=== PATIENT | female | born 1985 | race Hispanic/Latino ===

== ENCOUNTER 2019-03-13 19:09 | Emergency (ER) | payer SELFPAY ==
[2019-03-13 19:11] VITALS: BP 112/65; PULSE 83; RESP 17; TEMP 37.3; O2SAT 99; BMI 24.9
[2019-03-13 19:14] VITALS: BP 116/78; PULSE 83; RESP 18; TEMP 37.2; O2SAT 99
[2019-03-13 19:34] VITALS: BP 110/78; PULSE 76; RESP 18; O2SAT 99
--- NOTE | 2019-03-13 19:40 | ED.VIS.GEN ---
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 She was not able to come in because of work according to the . She had a home test that is positive. She denies fever, chills night sweats. She denies nausea, vomiting or diarrhea. She denies vaginal bleeding. She does report blood in her urine. She denies low back or flank pain. Prior similar symptoms: No Recent Illness/Hospitalization: No - Past Medical History (1) No significant past medical history Status: Acute Past Medical History - Allergies and Home Meds Allergies/Adverse Reactions: Allergies No Known Allergies Allergy (Verified 03/13/19 19:10) Primary Care Physician: Care Physician,No Primary [Primary Care Provider] - Prior records reviewed: No Past Medical History: None Surgical History: no surgical history Lives: Spouse/ Significant Other, With Family Smoking Status: Never smoker Alcohol: None Drugs: None Review of Systems General: Denies: Chills, Fever, Malaise, Subjective, Sweats, Weight loss, - Eyes: Denies: Visual changes - bilaterally, Blurred Vision - bilaterally ENT: Denies: Rhinorrhea, Sore throat Cardiovascular: Denies: Chest pain, Palpitations Respiratory: Denies: Dyspnea, Cough, Dyspnea on exertion Gastrointestinal: Denies: Abdominal pain, Nausea, Vomiting, Diarrhea, Constipation, Melena, Hematochezia, -, - Genitourinary: Reports: Dysuria, Hematuria, Frequency Musculoskeletal: Denies: Myalgias, Arthralgias, Neck pain, Back pain, Swelling, Extremity Pain, -, - Skin: Denies: Rash, Wounds Neurological: Denies: Headache, Weakness, Numbness Hematologic: Denies: Easy bruising, Easy bleeding Physical Exam Vital Signs/Narrative: Vital Signs Temp Pulse Resp BP Pulse Ox 03/13/19 19:11 99.1 F 83 17 112/65 99 Inital Vital Signs reviewed: Yes General: Well nourished, Well developed, No Acute Distress Head: Normocephalic, Atraumatic Eyes: Perrl, EOMI ENT: Moist mucous membranes, No rhinorrhea Neck: Supple, Nontender Cardiovascular: Regular rate, Regular rhythm, No murmurs Respiratory: No distress, CTA bilaterally, Chest nontender Abdomen: Soft, Nontender, Nondistended, Normal bowel sounds, No masses Back: Nontender, Normal Inspection, CVA tenderness - Right side Extremities: Nontender, No edema Skin: Normal color, No rash Neurological: Alert, Oriented x3, Cranial nerves II-XII grossly intact, Normal Strength, Normal Sensation Psychological: Normal affect, Normal Mood Diagnostic/Tx/Re-eval Laboratory Results 03/13/19 19:49 Urine Color Yellow Urine Clarity Cloudy Urine pH 8.0 Ur Specific Aubrey 1.015 Urine Protein 15 H Urine Glucose (UA) Normal Urine Ketones Negative Urine Occult Blood 150 H Urine Nitrite Negative Urine Bilirubin Negative Urine Urobilinogen Normal Ur Leukocyte Esterase 100 H - Medical Decision Making Patient presents with urinary symptoms. She had a home positive test. UA and urine culture were obtained. Macro is consistent with urinary tract infection. Micro results are pending. Will treat for infection since she is . 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 Endy Munoz. ED Disposition - Plan for ED Patient: Disposition: Home or Assisted Living Diagnosis: Urinary tract infection during Instructions: Urinary Tract Infections in Women Prescriptions: Cephalexin [Keflex] 500 mg PO 4X/DAY #28 cap Prescription Printed Referrals: Care Physician,No Primary [Primary Care Provider] - Endy Munoz MD [STAFF PHYSICIAN] - 3-5 Days Additional Instructions: If you have shaking chills with temperature greater than 100, vomiting prior to being seen by Dr. Endy Munoz in 3 to 5 days, please return to the emergency department for reevaluation.
[2019-03-13 19:52] LABS: Mucous, Urine 0 SEEN /hpf (<or=2+)
[2019-03-13 20:12] LABS: Color, Urine Yellow (Yellow); Glucose, Dipstick Normal (Normal); Ketone-Dipstick Negative (Negative); Leukocyte Esterase-Dipstick 100 /ul (Negative); Nitrite-Dipstick Negative (Negative); Occult Blood-Urine 150 /ul (Negative); Protein-Dipstick 15 mg/dl (Negative); Specific Gravity, Urine 1.015 (1.002-1.030); Urine Bilirubin Dipstick Negative (Negative); Urine Clarity Cloudy (Clear); Urine Urobilinogen Normal (Normal)
[2019-03-13 20:14] VITALS: BP 114/76; PULSE 92; RESP 18; TEMP 37.2; O2SAT 100
[2019-03-13 20:39] LABS: Amorphous Sediment 1+; Bacteria 2+ /hpf (None Seen); Red Blood Cells-Urine 10-25 SEEN /hpf (0-5); Squamous Epithelial Cells - UA 0-5 SEEN /hpf (5-10); White Blood Cells 10-25 SEEN /hpf (0-5)
[2019-03-13] MEDS: Cephalexin 250 MG Capsule 500 MG PO (20:45)
[2019-03-13 20:46] VITALS: RESP 18
== END 2019-03-13 20:49 | disposition home or self-care (01) ==
PROVIDERS: Emergency Provider Emergency Medicine
DX: O23.40 Unspecified infection of urinary tract in pregnancy, unspecified trimester (principal); R31.9 Hematuria, unspecified; Z3A.00 Weeks of gestation of pregnancy not specified
CPT/HCPCS: 81001; 87077; 87086; 87088; 87186; 99283

== ENCOUNTER → 2019-05-08 18:23 | Outpatient (CLI) | payer SELFPAY ==
[2019-05-08 22:52] LABS: Chlamydia Trachomatis by PCR Negative (Negative); Neisserai gonorrhoeae by PCR Negative (Negative); Probe Check PASS; Sample Adequacy Control PASS; Specimen Processing Control PASS
[2019-05-13 20:22] LABS: HPV Reflexed? NOT INDICATED
== END ==
PROVIDERS: Referring Provider Obstetrics & Gynecology; Visit Provider Obstetrics & Gynecology
DX: Z12.4 Encounter for screening for malignant neoplasm of cervix (principal); Z11.3 Encounter for screening for infections with a predominantly sexual mode of transmission
CPT/HCPCS: 87491; 87591; 88175; G0145

== ENCOUNTER 2019-11-13 16:20 | Inpatient (IN) | payer SELFPAY ==
[2019-11-13] VITALS (14 sets, daily range): BP systolic 96–110; BP diastolic 49–73; PULSE 54–80; RESP 16–20; TEMP 36–36.8; O2SAT 97–99; BMI 28.8
--- NOTE | 2019-11-13 11:00 | OB.TRI.NOTE ---
- Problem List (1) 38 weeks gestation of Status: Acute (2) Multiparity Status: Acute (3) Uterine contractions Status: Acute (4) Limited care Status: Acute (5) Late care Status: Acute History of Present Illness Date of Service: 11/13/19 Was patient seen by the physician?: No Reason For Visit: PRIMARY C SECTION Final ALIN: 11/20/19 Gestational age: 39 Weeks and 0 Days Allergies No Known Allergies Allergy (Verified 03/13/19 19:10) Laboratory Studies: Laboratory Tests 11/13/19 11/13/19 Range/Units 17:05 17:05 WBC 9.8 (4.4-11.0) K/mm3 RBC 4.23 (4.2-5.4) M/mm3 Hgb 12.3 (12.0-15.0) g/dL Hct 36.5 L (37-47) % MCV 86.3 (81-99) fL MCH 29.1 (27.0-32.0) pg MCHC 33.7 (32-36) g/dL RDW Std Deviation 41.0 (35.1-43.9) fl RDW Coeff of Philipp 13.2 (11.6-14.6) % Plt Count 229 (150-450) K/mm3 MPV 10.1 (6.2-12.0) fl Immature Gran % (Auto) 0.700 (0.0-0.9) % Neut % (Auto) 68.4 (47-70) % Lymph % (Auto) 21.0 (19-41) % [place] % (Auto) 9.4 (0-10) % Eos % (Auto) 0.2 (0-5) % Baso % (Auto) 0.3 (0-1) % Absolute Neuts (auto) 6.7 (2.0-7.7) X10^3/uL Absolute Lymphs (auto) 2.06 (0.83-4.51) X10^3/uL Nucleated RBC % 0 (0-5) % Blood Type O NEGATIVE Antibody Screen NEGATIVE Physical Exam Vitals: Vital Signs Temp Pulse BP Pulse Ox 97.0 F L 80 102/62 98 11/13/19 19:13 11/13/19 19:14 11/13/19 19:14 11/13/19 19:14 NST - FHR Rate Baby A FHR Category:: Category I Uterine Activity:: Irregular ctx's Impression/Plan Pt initially presented with contractions for rule out labor Cvx 0.5 cm, and remained unchanged after several hours on recheck Ctx's were irregular on toco NST reactive Discussed likely early labor and return precautions
[2019-11-13] MEDS: Lactated Ringers 1,000 ML 200 ML IV (17:05)
[2019-11-13] MEDS: Lactated Ringers 500 ML 999 ML IV ×2 (17:35→18:44)
[2019-11-13 17:38] LABS: Absolute Lymphocyte Count 2.06 X10^3/uL (0.83-4.51); Absolute Neutrophil Count 6.7 X10^3/uL (2.0-7.7); Basophil# 0.03 X10^3/uL; Basophil% 0.3 % (0-1); Eosinophil# 0.02 X10^3/uL; Eosinophils% 0.2 % (0-5); Hematocrit 36.5 % (37-47); Hemoglobin 12.3 g/dL (12.0-15.0); Lymphocyte # 2.06 X10^3/ul (4.0); Mean Corp Hgb Conc 33.7 g/dL (32-36); Mean Corpuscular Hgb 29.1 pg (27.0-32.0); Mean Corpuscular Volume 86.3 fL (81-99); Mean Platelet Vol. 10.1 fl (6.2-12.0); Monocyte# 0.92 X10^3/uL; Monocyte% 9.4 % (0-10); NRBC Flagged by Analyzer 0 % (0-5); Neutrophil # 6.73 X10^3/uL (2.7-7.7); Neutrophil % 68.4 % (47-70); Platelet Count 229 K/mm3 (150-450); RBC Distribution Width CV 13.2 % (11.6-14.6); Red Blood Count 4.23 M/mm3 (4.2-5.4); White Blood Count 9.8 K/mm3 (4.4-11.0)
[2019-11-13] MEDS: fentaNYL 100 MCG/2 ML Ampul IV (17:43)
[2019-11-13] MEDS: Amnioinfusion- 0.9% NS 1,000 ML IV.SOLN. INTRA-UTER (19:05)
--- NOTE | 2019-11-13 19:07 | PCM.HP.OB ---
- Problem List (1) 38 weeks gestation of Status: Acute (2) Multiparity Status: Acute (3) Uterine contractions Status: Acute (4) Limited care Status: Acute (5) Late care Status: Acute History Date of Admission: 11/13/19 Final ALIN: 11/20/19 Gestational age: 39 Weeks and 0 Days History of this : This is a 33 year-old, G2, P1, at 39 weeks gestational age who presents to [facility] ctx's q 2 min and spotting. Allergies No Known Allergies Allergy (Verified 03/13/19 19:10) Home Medications: Home Medications Vits [Prenatabs FA] 1 tab PO DAILY 11/13/19 Smoking Status: Never smoker Number of Fetus(es): 1 NST - FHR Rate Baby A Baseline: 130 Variability:: Moderate Accelerations:: 15 x 15 Decelerations:: None - None on admission, currently having occasional variable, early, and late decelerations Uterine Activity:: Ctx q 2 min History Past Pregnancies: Past Pregnancies Delivery Date Name GA/ Weeks Outcome Route Wt Infant Sex Labor Length Anesthesia Delivery Location Provider FOB Labs: See [facility] records Expected Infant Delivery Method: Spontaneous Vaginal Review of Systems Gynecological: Reports: - - +Ctx, vb. No LOF. 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 - Routine intrapartum care - GBS negative - Epidural prn - EFW < 4500 g and pelvis adequate. Anticipate vaginal delivery
--- NOTE | 2019-11-13 19:12 | PCM.PN.BLA ---
Progress Note At bedside to check patient. Uncomfortable with ctx's. Cvx 5/90/0, return of bloody and clear fluid on vaginal exam. Category 2 tracing. FHT 130/mod calixto/+accels/+variable, late, and early decelerations. Fluid bolus given. Continuing with position changes. FSE and IUPC placed. Will start amnioinfusion. Patient is progressing in labor, and FHT shows moderate variability as well as accelerations. Continue with resuscitative measures at this time for category 2 tracing. STROKE Vital Signs/Narrative: Vital Signs Temp Pulse BP 11/13/19 18:25 98.2 F 67 106/55 L
[2019-11-13] MEDS: Sodium Citrate/Citric Acid 30 ML UDC PO (20:18)
[2019-11-13] MEDS: Cefazolin 2 GM in 0.9% Normal Saline 100 ML IV (20:44)
[2019-11-13] MEDS: Methylergonovine 0.2 MG/ML Ampul IM (20:49)
[2019-11-13] MEDS: Ketorolac 30 MG/ML Syringe IV (21:20)
--- NOTE | 2019-11-13 21:28 | PCM.PN.BLA ---
Progress Note Late entry. Category 2 tracing initially improved with the resuscitative measures. The tracing then returned to category 2, followed by minimal variability and recurrent late decelerations. Using the family member at bedside as a operations plant attendant as he felt comfortable translating and had been translating well all day- discussed with patient that a section was recommended. The bedside operations plant attendant was not working at this time. Discussed nonreassuring status, and risk of compromise and/or . Patient declined a section and stated she understood the risk of compromise and/or . Then using a bedside operations plant attendant, again discussed with patient that a section was recommended. Again reviewed risks, benefits, and alternatives to a section. Discussed risks, benefits of expectant management. Reviewed that risk of not proceeding with a section included, but was not limited to, compromise and/or . The patient continued to decline a section, and stated understanding of the risks of not proceeding with a section. She stated understanding that the recommendation was for a section, and she stated understanding of why this was the recommendation. She continued to decline a section. Cvx remained at 6 cm on multiple rechecks. She continued to have ctx's q 1-2 min with bloody fluid. Discussed with patient concern for a placental abruption. Remained at bedside with patient. After an extensive discussion using the translating service, the patient was agreeable to a section. Reviewed risks, benefits, and alternatives to a section. The patient consented and desired to proceed with a section. STROKE Vital Signs/Narrative: Vital Signs Temp Pulse BP Pulse Ox 11/13/19 19:14 80 102/62 98 11/13/19 19:13 97.0 F L 97 11/13/19 18:25 98.2 F 67 106/55 L
[2019-11-13] MEDS: Oxytocin 30 units/NS 500 ml 30 UNITS/500 ML IV.SOLN 167 UNITS IV (21:30)
--- NOTE | 2019-11-13 21:44 | PCM.OPRPT ---
Problem List (1) 38 weeks gestation of Status: Acute (2) Multiparity Status: Acute (3) Uterine contractions Status: Acute (4) Limited care Status: Acute (5) Late care Status: Acute Report of Operation Date of Procedure: 11/13/19 Pre-Operative Diagnosis: 38 week gestation, multiparous patient, labor, non-reassuring status Post-Operative Diagnosis: As above Surgery/Procedure Performed:: Emergent PLTCS via pfannenstiel incision Description of Surgical Findings:: Normal appearing uterus, tubes, ovaries. Viable infant in cephalic presentation. Clear fluid present. Posterior placenta that was normal-appearing with a three-vessel cord. Type of Anesthesia:: Spinal Special Medications: Methergine given intra-op Specimen's removed: Placenta Drains: Alexander Estimated Blood Loss (mL): 1500 Fluids Replaced: 1500 Description of Procedure: After discussion of risks, benefits, alternatives patient consented to the section. Patient was taken back to the operating room where spinal anesthesia was found to be adequate. She was prepped and draped in the dorsal position with a leftward tilt. A Pfannenstiel skin incision was made using a scalpel and this was carried down to the underlying layer of fascia. The fascia was incised the midline. The fascial incision was extended laterally using Bradford scissors. The fascia was dissected off of the rectus muscles. The rectus was in the midline. The peritoneum was entered bluntly with good visualization of the bladder. The incision was extended bluntly. A low transverse incision was made on the uterus with a scalpel. Clear fluid was noted. was delivered in vertex presentation without any force or delay. A vigorous was delivered, and cord clamping was delayed. Infant was then handed off to the nursery staff. The placenta was removed with manual extraction. Cord gases were obtained. The placenta was sent to pathology. The uterus was cleared of all clot and debris. The uterus was exteriorized from the abdomen. The uterine incision was closed in a running locked fashion. Several additional [id number] sutures were placed for hemostasis. A hematoma measuring 2 x 1 cm was noted at the left lower portion of the hysterotomy. This hematoma was stable in size. The uterus was placed back into the abdomen. The incision was noted to be hemostatic. The hematoma was still stable in size. The peritoneum was closed in a running fashion. The fascia was closed in running fashion. Subcutaneous space was irrigated and made hemostatic with Bovie cautery. The skin was closed in a subcuticular fashion. Steri-Strips and dressing were placed. Instrument counts were correct. The patient was taken to the recovery room in stable condition. Grafts/Implants Used: None - Complications None - Admit VTE Documentation VTE Present on Admission: No VTE Mechan Device Prophylaxis: SCD's Delivery Classification: FLORENCE Indications for : Distress, Nonreassuring Status Placenta Disposition: [facility] Drain: Alexander to straight drain Cord Entanglement: None Cord Vessel Description: 3 Vessels Delayed cord clamping: Yes Antibiotic Given: Ancef 2 grams IV x1, Zithromax 500 mg/5 mL X1 Pt instructed on risks of surgery: Bleeding, Infection, Injury to surrounding structure(s) including bowel and bladder Complications: None
[2019-11-14] VITALS (11 sets, daily range): BP systolic 89–109; BP diastolic 48–55; PULSE 61–75; RESP 16–20; TEMP 36.2–36.8; O2SAT 97–99
--- NOTE | 2019-11-14 | PLAC_PTH ---
PATIENT: JOHANNA VELAZQUEZ LOC: [facility] U#:[id number] AGE/SX: 33/F ROOM: WP019 RE11/13/[address]: Dr. Suzan Zuniga DO : 1985 BED: 1 DIS: 11/15/2019 SPEC #: [id number] RECD: 11/14/19 02:18 STATUS: WILIAN RESarah #: [id number] RENAN: 11/14/19 00:[address]: Suzan Zuniga DEPT: SURGICAL PATHOLOGY RECD BY: Delroy Phelps ENTERED: 11/14/19 11:08 SP TYPE: PLACENTA OTHR DR: No Primary Care Phys Tissues: Placenta, NOS Procedures: Surgery Specimen Level V HEADER OPERATION: Primary section PRE-OP DIAGNOSIS: Possible abruption TISSUE SUBMITTED: Placenta MICROSCOPIC DIAGNOSIS Walker placenta (549 gm): Umbilical cord - trivascular with no inflammation. Placental membranes - no pathologic change. Placental disc - organizing intraparenchymal hemorrhage and intervillous congestion. AM:zainab 11/18/19 MICROSCOPIC DESCRIPTION Slides are reviewed. GROSS DESCRIPTION SPECIMEN: PLACENTA / CLINICAL INFORMATION: A. Weight: 3.465 kg B. Gestational Age: 39 weeks C. Sex: Female PLACENTAL WEIGHT (POST FIXATION): 549 gm PLACENTAL DIMENSIONS: 18 x 19 x 3 cm PLACENTAL SHAPE: Usual ovoid PLACENTAL WEIGHT FOR GESTATIONAL AGE: Within 10-99th percentile MEMBRANES - Present A. Insertion: Marginal B. Site of rupture from edge: 5 cm from edge of placental disc C. Color of membrane: Trinh-boswell D. Abnormalities: None UMBILICAL CORD - Present A. Color: Trinh-boswell B. Insertion: Central C. Length: 34 cm D. Diameter: 1.4 cm E. Number of vessels: Three F. Abnormalities: None PLACENTAL DISC - Present A. Color of surface: Trinh-boswell B. surface abnormalities: None C. Maternal cotyledons: Intact with minimal tears D. Attached retro placental clot: No clot E. Cut surface: Dark red and spongy F. Lesions: Sections reveal a trinh, indurated lesion measuring 1 cm in greatest dimension. G. Separate clot: Absent SECTIONS SUBMITTED: 1. Membrane roll 2. Cord, maternal end 3. Cord, end 4. Placental disc, and maternal surfaces, lesion 5. Placental disc, and maternal surfaces 6. Placental disc, and maternal surfaces SJ:zainab 11/17/19 TC:5 CPT: 22607
[2019-11-14] MEDS: Lactated Ringers 1,000 ML 100 ML IV (00:30)
[2019-11-14 00:34] LABS: Amphetamine Urine VISTA NEGATIVE (<1000 ng/mL); Barbiturate Urine VISTA NEGATIVE (< 200 ng/mL); Benzodiazepine Urine VISTA NEGATIVE (< 200 ng/mL); Cocaine Urine VISTA NEGATIVE (< 300 ng/mL); Ecstacy Urine VISTA NEGATIVE (< 500 ng/mL); Methadone Urine VISTA NEGATIVE (< 300 ng/mL); PCP Urine VISTA NEGATIVE (< 25 ng/mL); THC Urine VISTA NEGATIVE (< 50 ng/mL); Vista UDS pH Range 6
[2019-11-14] MEDS: Ketorolac 30 MG/ML Syringe IV ×4 (03:47→20:56)
[2019-11-14 06:11] LABS: Hematocrit 28.6 % (37-47); Hemoglobin 9.4 g/dL (12.0-15.0); Mean Corp Hgb Conc 32.9 g/dL (32-36); Mean Corpuscular Hgb 28.8 pg (27.0-32.0); Mean Corpuscular Volume 87.7 fL (81-99); Mean Platelet Vol. 10.3 fl (6.2-12.0); Platelet Count 182 K/mm3 (150-450); RBC Distribution Width CV 13.1 % (11.6-14.6); RBC Distribution Width SD 41.1 fl (35.1-43.9); Red Blood Count 3.26 M/mm3 (4.2-5.4); White Blood Count 13.8 K/mm3 (4.4-11.0)
[2019-11-14] MEDS: Enoxaparin 40 MG/0.4 ML Syringe SC (09:40)
[2019-11-14] MEDS: 0.9% Saline Lock 10 ML Syringe IV ×2 (09:40→20:56)
--- NOTE | 2019-11-14 10:34 | NURSING ---
Dr. Webster in to discuss baby care, discharge plans, and importance of picking a measurement superintendent and making an appointment in 1-2 days after discharge. RN in with Doctor and helped with the IPAD training intern, Spoke with Mago and translation of instructions and opportunity for mother to ask questions reguarding baby. Assessment completed by Dr. Webster on baby.
[2019-11-14 10:53] LABS: Pathology Specimen OB SEE PATHOLOGY REPORT
--- NOTE | 2019-11-14 11:03 | PN.OBGYN_ITS ---
Patient Problems: Active and Suspected Problems 38 weeks gestation of (Acute) Multiparity (Acute) Uterine contractions (Acute) Limited care (Acute) Late care (Acute) Subjective: Denies concerns. Pain controlled. - Physical Exam Vitals/I&O's: Vital Signs Temp Pulse Resp BP Pulse Ox 97.9 F 63 16 89/48 L 97 11/14/19 08:20 11/14/19 08:20 11/14/19 08:20 11/14/19 08:20 11/14/19 08:20 Oxygen Delivery Method Room Air Weight: 155 lb 3.287 oz Body Mass Index (BMI) 28.8 Intake and Output for Last 24 Hours 11/12/19 11/13/19 11/14/19 23:59 23:59 23:59 Intake Total 4918.33 / 4918.33 700 / 700 Output Total 400 / 400 1000 / 1000 Balance 4518.33 / 4518.33 -300 / -300 General: Alert, Oriented x3 Abdomen: Soft, Non Tender, Non-Distended - ff mid & below umb; inc - bandage c/d/i Extremities: No Calf Tenderness Neurological: Cranial nerves II-XII grossly intact Laboratory Results 11/13/19 17:05: WBC 9.8, RBC 4.23, Hgb 12.3, Hct 36.5 L, MCV 86.3, MCH 29.1, MCHC 33.7, RDW Std Deviation 41.0, RDW Coeff of Philipp 13.2, Plt Count 229, MPV 10.1, Immature Gran % (Auto) 0.700, Neut % (Auto) 68.4, Lymph % (Auto) 21.0, Wilkes % (Auto) 9.4, Eos % (Auto) 0.2, Baso % (Auto) 0.3, Absolute Neuts (auto) 6.7, Absolute Lymphs (auto) 2.06, Nucleated RBC % 0 11/13/19 17:05: Blood Type O NEGATIVE, Antibody Screen NEGATIVE 11/13/19 23:30: Urine Opiates Screen NEGATIVE, Urine Methadone Screen NEGATIVE, Ur Barbiturates Screen NEGATIVE, Ur Phencyclidine Scrn NEGATIVE, Ur Amphetamines Screen NEGATIVE, U Methamphetamin-MDMA NEGATIVE, U Benzodiazepines Scrn NEGATIVE, Urine Cocaine Screen NEGATIVE, U Cannabinoids Screen NEGATIVE, Ur Drug Screen Comment 11/13/19 23:44: Screen NEGATIVE, Baby's Blood Type O POSITIVE, Baby's POLI NEGATIVE 11/14/19 05:40: WBC 13.8 H, RBC 3.26 L, Hgb 9.4 L, Hct 28.6 L, MCV 87.7, MCH 28.8, MCHC 32.9, RDW Std Deviation 41.1, RDW Coeff of Philipp 13.1, Plt Count 182, MPV 10.3 Current Medications Acetaminophen (Tylenol) 1,000 mg PO Q8H PRN PRN PRN Reason: Pain Score 1-3/10 Bisacodyl (Dulcolax) 10 mg RECTAL UD PRN PRN Reason: If no BM Diphenhydramine HCl (Benadryl) 25 mg PO Q6H PRN PRN PRN Reason: ITCHING Stop: 11/15/19 04:41 Enoxaparin Sodium (Lovenox) 40 mg SC DAILY [facility] Last Admin: 11/14/19 09:40 Dose: 40 mg Documented by: Ferrous Sulfate (Ferrous Sulfate) 325 mg PO DAILY@1200 MATT Hydrocortisone (Hytone) 1 applic TOPICAL TID PRN PRN; Protocol PRN Reason: Discomfort Lactated Ringer's () 1,000 mls @ 100 mls/hr IV .Q10H [facility] Last Admin: 11/14/19 00:30 Dose: 100 mls/hr Documented by: Naloxone HCl 4 mg/ Dextrose 504 mls @ 0 mls/hr IV .Q0M PRN; Protocol PRN Reason: Respiratory depression Ibuprofen (Motrin) 600 mg PO Q6H PRN PRN PRN Reason: Pain Score 1-3/10 Ketorolac Tromethamine (Toradol (Bkc)) 30 mg IV Q6H MATT Stop: 11/15/19 21:31 Last Admin: 11/14/19 09:39 Dose: 30 mg Documented by: Methylergonovine Maleate (Methergine) 0.2 mg IM X1 PRN PRN Reason: Uterine Atony Last Admin: 11/13/19 20:49 Dose: 0.2 mg Documented by: Nalbuphine HCl (Nubain) 5 mg IV Q3H PRN PRN PRN Reason: ITCHING Stop: 11/15/19 04:41 Naloxone HCl (Narcan) 0.02 mg IV Q1M PRN PRN Reason: RR <10 and pt unresponsive Ondansetron HCl (Zofran) 4 mg IV Q4H PRN PRN PRN Reason: Nausea Oxycodone HCl (Oxyir) 5 - 10 mg PO Q4H PRN PRN PRN Reason: Pain Score 4-10/10 Prochlorperazine Edisylate (Compazine Iv) 10 mg IV Q6H PRN PRN PRN Reason: NAUSEA Senna/Docusate Sodium (Senokot-S, Kandace-Colace) 1 - 2 tablet PO DAILY PRN PRN Reason: Constipation Simethicone (Mylicon) 80 mg PO PCHS PRN PRN Reason: Indigestion/stomach pain Sodium Chloride () 5 - 15 ml IV UD PRN PRN Reason: SALINE FLUSH Last Admin: 11/14/19 09:40 Dose: 10 ml Documented by: Medical Necessity - Tobacco Use Smoking Status: Never smoker Assessment/Plan All Active Problems No significant past medical history (Acute) 38 weeks gestation of (Acute) Multiparity (Acute) Uterine contractions (Acute) Limited care (Acute) Late care (Acute) POD#1 Heme - HDS, start iron for anemia of ID - AF, no signs infection GI/ - no isses Plan for d/c tomorrow Routine care
[2019-11-14] MEDS: Ferrous Sulfate 325 MG Tablet PO (13:13)
--- NOTE | 2019-11-14 13:46 | CASEMGMT ---
Social Work Assessment Labor and Delivery Unit Date of Referral: 11/14/2019 Time of Referral: 03:51 Referred By: Dr Tia Osorio Date of Intervention: 11/14/2019 Time of Intervention: 13:46 Reason for Referral: Mother of baby (MOB) with history of late and limited care. History obtained from: MOB, chart, and nursing staff. Household composition: MOB, Father of baby (FOB), MOB?s 7-year-old and now this , Charissa Schrader. Charissa and MOB?s 7-year-old do not share paternity. MOB voicing no concerns for 7-year-olds FOB being involved. Patient's parent/guardian status: MOB voicing to have been in relationship with FOB, Vincent Schrader for the past year. MOB stating to feel safe with Vincent. MOB has custody of both children. Medical History: history for MOB. Emergent at 38 weeks gestation. MOB with no significant past medical history. Infant born on 11/13/2018 with of 9 and 9 at 1min and 5min. Infant weight of 3465g. Educational Status: MOB denies any concerns for comprehension or understanding. MOB primary language is Syriac and an spanish interpreter was utilized to assist with conversation with MOB as this social workers primary language is Polish. Front Desk Administrator used through [employer] ([id number] is I.D. of spanish interpreter). Financial Status: Denies any concerns. FOB works full-time outside of the home. Infant Supplies: MOB stating to have all needed supplies including crib and car seat. Childcare/Caregiver(s): MOB plans to be primary caregiver for as MOB is a homemaker. Transportation: No concerns. Programs/Agencies Involved: No involved agencies/programs. Children Services/Legal Issues: None Mental Health History: MOB denies any mental health history. Educated MOB on signs and symptoms of depression, MOB voicing understanding to this. Resources provided. MOB with negative on PHQ-2 and denies any emotional concerns. Substance Use History: MOB denies any substance abuse for MOB or FOB. Maternal and Drug Screens: Tox screens negative on admission for MOB. Tox screen negative for infant. Pending Meconium at this time. Family/Social Stressors: MOB denies any concerns or recent stressors. Support Systems: MOB reporting to have support from FOB and FOB's family. Depression and Anxiety/Shaken Baby/Safe Sleeping: MOB educated and provided resources on depression and local resources in Syriac. ASSESSMENT: Met with patient in room. Introduced self as well as social research assistant role. MOB open to speaking with this social research assistant. Front Desk Administrator used as mentioned above. MOB stating to have a connection with infant and to have no concerns at time of discharge. This social research assistant broached topic of late care. MOB stating I went to all the appointment accept one. MOB stating to have not gone to the last appointment due to concerns of the current COVID-19 pandemic. This social research assistant educating patient on the importance of following up with doctors appointment. MOB voicing plan and intent to continue to follow up with doctors. MOB stating to believe that MOB had appropriate level of care. MOB presenting with a positive affect. Infant in room during assessment. MOB holding infant and able to manage needs during assessment. MOB planning to do a combination of breast and formula feeding. MOB stating to be bonding with infant and to be excited that infant is here. MOB voicing no concerns at discharge. MOB noted to have multiple care visits and to have missed the last care visit. Due to care records a drug test was obtained and meconium is pending. Updated nursing staff on social work assessment. PLAN: Infant to discharge to home with MOB. No other services requested or indicated. Ford FERREIRA, TERRIE
--- NOTE | 2019-11-14 16:50 | CASEMGMT ---
Social Work Assessment Labor and Delivery Unit Date of Referral: Time of Referral: Referred By: Date of Intervention: Time of Intervention: Reason for Referral: Mother of baby (MOB) with history of late and limited care. History obtained from: MOB, chart, and nursing staff. Household composition: MOB, Father of baby (FOB), MOB?s 7-year-old and now this infant, Charissa Schrader. Charissa and MOB?s 7-year-old do not share paternity. MOB voicing no concerns for 7-year-olds FOB being involved. Patient's parent/guardian status: MOB voicing to have been in relationship with FOB, Vincent Schrader for the past year. MOB stating to feel safe with Vincent. MOB has custody of both children. Medical History: history for MOB. Emergent at 38 weeks gestation. MOB with no significant past medical history. Infant born on 11/13/2018 with of 9 and 9 at 1min and 5min. Infant weight of 3465g. Educational Status: MOB denies any concerns for comprehension or understanding. MOB primary language is Czech and an special procedures technologist was utilized to assist with conversation with MOB as this social workers primary language is Dutch. Land Clearer used through [employer] ([id number] is I.D. of special procedures technologist). Financial Status: Denies any concerns. FOB works full-time outside of the home. Infant Supplies: MOB stating to have all needed supplies including crib and car seat. Childcare/Caregiver(s): MOB plans to be primary caregiver for infant as MOB is a homemaker. Transportation: No concerns. Programs/Agencies Involved: No involved agencies/programs. Children Services/Legal Issues: None Mental Health History: MOB denies any mental health history. Educated MOB on signs and symptoms of depression, MOB voicing understanding to this. Resources provided. Substance Use History: Family History: Maternal and Infant Drug Screens: PHQ9: (can put this into the behavioral health section above or make a stand-alone section depending on how much data is discussed) Family/Social Stressors: Support Systems: Depression and Anxiety/Shaken Baby/Safe Sleeping: (can be stand alone or in the assessment piece depending on how much time was taken) ASSESSMENT: Safe Plan of Care for related to substance use: PLAN: No other services requested or indicated.
[2019-11-15 02:03] VITALS: BP 88/43; PULSE 67; RESP 16; TEMP 36.8
[2019-11-15] MEDS: Acetaminophen 500 MG Tablet 1000 MG PO (02:11)
--- NOTE | 2019-11-15 04:18 | NURSING ---
Safe sleep education given to pt. and FOB several times throughout the night. Nigerian safe sleep brochure and paper were provided as well as the english version of The [employer] book. Family states understanding, but continues to sleep with infant in the bed. This RN and Brianne Monge RN have moved infant to crib during hourly rounding several times to ensure safe sleep environment.
[2019-11-15] MEDS: Ibuprofen 600 MG Tablet PO (08:50)
[2019-11-15] MEDS: Senna/Docusate Sodium 1 Tablet PO (08:51)
[2019-11-15 09:00] VITALS: BP 104/56; PULSE 77; RESP 16; TEMP 36.8; O2SAT 98
[2019-11-15] MEDS: Enoxaparin 40 MG/0.4 ML Syringe SC (10:14)
--- NOTE | 2019-11-15 10:16 | DCINST_ITS ---
Discharge Diet: No Restrictions Discharge Activity: May not drive while taking narcotic pain medications., May Shower May resume sexual activity in: 6 weeks Weight Bearing Status: Weight bearing as tolerated Call your doctor if your incision/area has: Continuous Slow Oozing, Sudden Increased Bleeding, Increased Pain/ Swelling, Increased Redness, Foul Smelling Discharge, Swelling at the incision site Suture Line Care: Avoid Pulling/Pushing, Avoid Pinching/Bending Cleanse incision/area with: Soap & Water Additional Instructions: If you experience any of the following, contact your healthcare provider. * Bleeding that soaks a pad every hour for 2 hours * Fever 100.4 or higher * Unrelieved incision or abdominal pain * Swelling, redness, discharge or bleeding from your incision or episiotomy site * Your incision begins to separate * Problems urinating (including inability to urinate or burning while urinating). * Visual changes * Severe headache * Flu-like symptoms * Pain or redness in one of both of your breasts * Pain, warmth, tenderness or swelling in your legs, especially the calf area * Frequent nausea and vomiting * Symptoms of depression or anxiety If you experience any of the following, call 911 or go to the nearest Emergency Room. * Chest pain * Problems breathing * Seizure activity * Partial or complete paralysis of a body part, slurred speech, weakness or drooping of the face, or a sudden inability to walk or hold your balance Allergies/Adverse Reactions: Allergies No Known Allergies Allergy (Verified 03/13/19 19:10) Medications to take at Discharge Vits [Prenatabs FA ] 1 tab PO DAILY 11/13/19 Acetaminophen [Tylenol] 1,000 mg PO Q8H PRN PRN tablet 11/15/19 Ferrous Sulfate 325 mg PO DAILY@1200 #30 tab 11/15/19 Ibuprofen [Motrin] 600 mg PO Q6H PRN PRN #30 tab 11/15/19 Oxycodone [Oxyir] 5 mg PO Q6H PRN PRN 5 Days #20 tablet 11/15/19 Senna/Docusate Sodium [Senokot-S] 1 tab PO DAILY PRN #20 tab 11/15/19 The following prescriptions were given: Ferrous Sulfate 325 mg PO DAILY@1200 #30 tab Transmission Status: Pending to [facility] Ibuprofen [Motrin] 600 mg PO Q6H PRN PRN #30 tab PRN Reason: Pain Score 1-3/10 Transmission Status: Pending to [facility] Oxycodone [Oxyir] 5 mg PO Q6H PRN PRN 5 Days #20 tablet PRN Reason: Pain Score 4-10/10 Transmission Status: Sent to [facility] Senna/Docusate Sodium [Senokot-S] 1 tab PO DAILY PRN #20 tab PRN Reason: Constipation Transmission Status: Pending to [facility] Follow-Up: Call to make an appointment with your doctor for an incision check in 1-2 weeks. You will also need a 6 week post- follow up appointment. Test results from this visit will be discussed in further detail at your follow- up appointment, if applicable. Primary Care Physician: Care Physician,No Primary [Primary Care Provider] -
--- NOTE | 2019-11-15 10:19 | PCM.PN.OB ---
Patient Problems: Active and Suspected Problems 38 weeks gestation of (Acute) Multiparity (Acute) Uterine contractions (Acute) Limited care (Acute) Late care (Acute) Subjective: Pain controlled - Physical Exam Vitals/I&O's: Vital Signs Temp Pulse Resp BP Pulse Ox 98.3 F 67 16 88/43 L 97 11/15/19 02:03 11/15/19 02:03 11/15/19 02:03 11/15/19 02:03 11/14/19 21:09 Oxygen Delivery Method Room Air Weight: 155 lb 3.287 oz Body Mass Index (BMI) 28.8 Intake and Output for Last 24 Hours 11/13/19 11/14/19 11/15/19 23:59 23:59 23:59 Intake Total 4918.33 / 4918.33 1616.67 / 1616.67 Output Total 400 / 400 1000 / 1000 Balance 4518.33 / 4518.33 616.67 / 616.67 General: Alert, Oriented x3 Abdomen: Soft, Non Tender, Non-Distended - ff mid & below umb; incision - bandage c/d/i Extremities: No Calf Tenderness Neurological: Cranial nerves II-XII grossly intact Current Medications Acetaminophen (Tylenol) 1,000 mg PO Q8H PRN PRN PRN Reason: Pain Score 1-310 Last Admin: 11/15/19 02:11 Dose: 1,000 mg Documented by: Bisacodyl (Dulcolax) 10 mg RECTAL UD PRN PRN Reason: If no BM Enoxaparin Sodium (Lovenox) 40 mg SC DAILY [facility] Last Admin: 11/15/19 10:14 Dose: 40 mg Documented by: Ferrous Sulfate (Ferrous Sulfate) 325 mg PO DAILY@1200 [facility] Last Admin: 11/14/19 13:13 Dose: 325 mg Documented by: Hydrocortisone (Hytone) 1 applic TOPICAL TID PRN PRN; Protocol PRN Reason: Discomfort Naloxone HCl 4 mg/ Dextrose 504 mls @ 0 mls/hr IV .Q0M PRN; Protocol PRN Reason: Respiratory depression Ibuprofen (Motrin) 600 mg PO Q6H PRN PRN PRN Reason: Pain Score 1-3/10 Last Admin: 11/15/19 08:50 Dose: 600 mg Documented by: Methylergonovine Maleate (Methergine) 0.2 mg IM X1 PRN PRN Reason: Uterine Atony Last Admin: 11/13/19 20:49 Dose: 0.2 mg Documented by: Naloxone HCl (Narcan) 0.02 mg IV Q1M PRN PRN Reason: RR <10 and pt unresponsive Ondansetron HCl (Zofran) 4 mg IV Q4H PRN PRN PRN Reason: Nausea Oxycodone HCl (Oxyir) 5 - 10 mg PO Q4H PRN PRN PRN Reason: Pain Score 4-10/10 Prochlorperazine Edisylate (Compazine Iv) 10 mg IV Q6H PRN PRN PRN Reason: NAUSEA Senna/Docusate Sodium (Senokot-S, Kandace-Colace) 1 - 2 tablet PO DAILY PRN PRN Reason: Constipation Last Admin: 11/15/19 08:51 Dose: 1 tablet Documented by: Simethicone (Mylicon) 80 mg PO PCHS PRN PRN Reason: Indigestion/stomach pain Sodium Chloride () 5 - 15 ml IV UD PRN PRN Reason: SALINE FLUSH Last Admin: 11/14/19 20:56 Dose: 15 ml Documented by: Medical Necessity - Tobacco Use Smoking Status: Never smoker Assessment/Plan All Active Problems No significant past medical history (Acute) 38 weeks gestation of (Acute) Multiparity (Acute) Uterine contractions (Acute) Limited care (Acute) Late care (Acute) POD#2 D/c home
--- NOTE | 2019-11-15 10:22 | DS.PCM_ITS ---
Discharge Date and Diagnosis - Problem List Patient Problems: Active and Suspected Problems 38 weeks gestation of (Acute) Multiparity (Acute) Uterine contractions (Acute) Limited care (Acute) Late care (Acute) Date of Admission: 11/13/19 Date of Discharge: 11/15/19 - Primary Discharge Diagnosis Active and Suspected Problems 38 weeks gestation of (Acute) Multiparity (Acute) Uterine contractions (Acute) Limited care (Acute) Late care (Acute) Hospital Course and Treatment Summary of Care Provided: The patient is a 33 year old F presented in labor. She had a primary - see operative note. Hospital course: (1) Heme - discharged home on iron for anemia of (2) GI/ - no issues (3) ID - AF, no signs infection D/c home on POD#2 Patient Problems: Active and Suspected Problems 38 weeks gestation of (Acute) Multiparity (Acute) Uterine contractions (Acute) Limited care (Acute) Late care (Acute) - Physical Exam Vitals/I&O's: Vital Signs Temp Pulse Resp BP Pulse Ox 98.3 F 67 16 88/43 L 97 11/15/19 02:03 11/15/19 02:03 11/15/19 02:03 11/15/19 02:03 11/14/19 21:09 Oxygen Delivery Method Room Air Weight: 155 lb 3.287 oz Body Mass Index (BMI) 28.8 Intake and Output for Last 24 Hours 11/13/19 11/14/19 11/15/19 23:59 23:59 23:59 Intake Total 4918.33 / 4918.33 1616.67 / 1616.67 Output Total 400 / 400 1000 / 1000 Balance 4518.33 / 4518.33 616.67 / 616.67 Current Medications Acetaminophen (Tylenol) 1,000 mg PO Q8H PRN PRN PRN Reason: Pain Score 1-3/10 Last Admin: 11/15/19 02:11 Dose: 1,000 mg Documented by: Bisacodyl (Dulcolax) 10 mg RECTAL UD PRN PRN Reason: If no BM Enoxaparin Sodium (Lovenox) 40 mg SC DAILY [facility] Last Admin: 11/15/19 10:14 Dose: 40 mg Documented by: Ferrous Sulfate (Ferrous Sulfate) 325 mg PO DAILY@1200 [facility] Last Admin: 11/14/19 13:13 Dose: 325 mg Documented by: Hydrocortisone (Hytone) 1 applic TOPICAL TID PRN PRN; Protocol PRN Reason: Discomfort Naloxone HCl 4 mg/ Dextrose 504 mls @ 0 mls/hr IV .Q0M PRN; Protocol PRN Reason: Respiratory depression Ibuprofen (Motrin) 600 mg PO Q6H PRN PRN PRN Reason: Pain Score 1-3/10 Last Admin: 11/15/19 08:50 Dose: 600 mg Documented by: Methylergonovine Maleate (Methergine) 0.2 mg IM X1 PRN PRN Reason: Uterine Atony Last Admin: 11/13/19 20:49 Dose: 0.2 mg Documented by: Naloxone HCl (Narcan) 0.02 mg IV Q1M PRN PRN Reason: RR <10 and pt unresponsive Ondansetron HCl (Zofran) 4 mg IV Q4H PRN PRN PRN Reason: Nausea Oxycodone HCl (Oxyir) 5 - 10 mg PO Q4H PRN PRN PRN Reason: Pain Score 4-10/10 Prochlorperazine Edisylate (Compazine Iv) 10 mg IV Q6H PRN PRN PRN Reason: NAUSEA Senna/Docusate Sodium (Senokot-S, Kandace-Colace) 1 - 2 tablet PO DAILY PRN PRN Reason: Constipation Last Admin: 11/15/19 08:51 Dose: 1 tablet Documented by: Simethicone (Mylicon) 80 mg PO PCHS PRN PRN Reason: Indigestion/stomach pain Sodium Chloride () 5 - 15 ml IV UD PRN PRN Reason: SALINE FLUSH Last Admin: 11/14/19 20:56 Dose: 15 ml Documented by: Discharge Diet: No Restrictions Discharge Activity: May not drive while taking narcotic pain medications., May Shower May resume sexual activity in: 6 weeks Weight Bearing Status: Weight bearing as tolerated Call your doctor if your incision/area has: Continuous Slow Oozing, Sudden Increased Bleeding, Increased Pain/ Swelling, Increased Redness, Foul Smelling Discharge, Swelling at the incision site Suture Line Care: Avoid Pulling/Pushing, Avoid Pinching/Bending Cleanse incision/area with: Soap & Water Home Medications: Medications to take at Discharge Vits [Prenatabs FA ] 1 tab PO DAILY 11/13/19 Acetaminophen [Tylenol] 1,000 mg PO Q8H PRN PRN tab 11/15/19 Ferrous Sulfate 325 mg PO DAILY@1200 #30 tab 11/15/19 Ibuprofen [Motrin] 600 mg PO Q6H PRN PRN #30 tab 11/15/19 Oxycodone [Oxyir] 5 mg PO Q6H PRN PRN 5 Days #20 tab 11/15/19 Senna/Docusate Sodium [Senokot-S] 1 tab PO DAILY PRN #20 tab 11/15/19 Following Prescrptions Were Given to Patient: Ferrous Sulfate 325 mg PO DAILY@1200 #30 tab Transmission Status: Received by [facility] Ibuprofen [Motrin] 600 mg PO Q6H PRN PRN #30 tab PRN Reason: Pain Score 1-3/10 Transmission Status: Received by [facility] Oxycodone [Oxyir] 5 mg PO Q6H PRN PRN 5 Days #20 tab PRN Reason: Pain Score 4-10/10 Transmission Status: Received by [facility] Senna/Docusate Sodium [Senokot-S] 1 tab PO DAILY PRN #20 tab PRN Reason: Constipation Transmission Status: Received by [facility] Primary Care Physician: Care Physician,No Primary [Primary Care Provider] - Medical Necessity - Tobacco Use Smoking Status: Never smoker Meaningful Use Info Meaningful Use Diagnoses (Choose all that apply): None applicable
[2019-11-15 12:21] VITALS: BP 108/60; PULSE 80; RESP 16; TEMP 36.9
== END 2019-11-15 12:15 | disposition home or self-care (01) | DRG 788 ==
LOC: WPOUT 16:59 → WP 21:12
PROVIDERS: Admitting Provider Obstetrics & Gynecology; Referring Provider Obstetrics & Gynecology; Visit Provider Obstetrics & Gynecology
DX: O76 Abnormality in fetal heart rate and rhythm complicating labor and delivery (principal); O90.81 Anemia of the puerperium; D64.9 Anemia, unspecified; Z3A.38 38 weeks gestation of pregnancy; Z37.0 Single live birth
CPT/HCPCS: 59025; 59050; 80307; 85025; 85027; 85461; 86850; 86900; 86901; 88307; 90384; 99218; J7030; J7120; A4216; G0378; J2790

== ENCOUNTER → 2019-11-13 16:20 | Outpatient (CLI) | payer SELFPAY ==
[2019-11-13 10:16] VITALS: BMI 28.8
[2019-11-13 16:56] VITALS: BP 112/73; PULSE 70
[2019-11-13 16:57] VITALS: BP 112/73; PULSE 60; TEMP 36.9; O2SAT 100
== END | disposition home or self-care (01) ==
LOC: WPOUT 16:43 → WP 16:43 → WPOUT 16:48
PROVIDERS: Visit Provider Obstetrics & Gynecology
DX: Z00.00 Encounter for general adult medical examination without abnormal findings (principal)

== ENCOUNTER 2021-12-13 07:55 | Inpatient (IN) | payer OTHER, SELFPAY ==
[2021-12-13] VITALS (40 sets, daily range): BP systolic 88–134; BP diastolic 48–64; PULSE 46–97; RESP 16; TEMP 36.2–36.9; O2SAT 79–100
[2021-12-13 07:20] LABS: ROM Internal Control Test YES-OK TO RESULT pt. (Internal QC); ROM Patient Test Negative (Negative)
[2021-12-13 07:43] LABS: Absolute Lymphocyte Count 1.35 X10^3/uL (0.83-4.51); Absolute Neutrophil Count 4.3 X10^3/uL (2.0-7.7); Basophil# 0.02 X10^3/uL; Basophil% 0.3 % (0-1); Eosinophil# 0.03 X10^3/uL; Eosinophils% 0.5 % (0-5); Hematocrit 38.5 % (37-47); Lymphocyte # 1.35 X10^3/ul (0.83-4.51); Lymphocyte % 21.8 % (19-41); Mean Corp Hgb Conc 33.8 g/dL (32-36); Mean Corpuscular Hgb 30.3 pg (27.0-32.0); Mean Corpuscular Volume 89.7 fL (81-99); Mean Platelet Vol. 9.7 fl (6.2-12.0); Monocyte# 0.47 X10^3/uL; Monocyte% 7.6 % (0-10); NRBC Flagged by Analyzer 0 % (0-5); Neutrophil # 4.28 X10^3/uL (2.7-7.7); Neutrophil % 69.3 % (47-70); Platelet Count 225 K/mm3 (150-450); RBC Distribution Width CV 13.2 % (11.6-14.6); Red Blood Count 4.29 M/mm3 (4.2-5.4); White Blood Count 6.2 K/mm3 (4.4-11.0)
[2021-12-13] MEDS: fentaNYL 100 MCG/2 ML Ampul 50 MCG IV (08:13)
[2021-12-13] MEDS: Lactated Ringers 1,000 ML 999 ML IV (08:13)
[2021-12-13 08:16] LABS: Bedside Glucose 104 mg/dL (74-106)
[2021-12-13] MEDS: Acetaminophen 500 MG Tablet 1000 MG PO (08:44)
[2021-12-13] MEDS: Lactated Ringers 1,000 ML 150 ML IV (08:45)
[2021-12-13 08:58] LABS: International Normalized Ratio 0.9; Prothrombin Time (Protime)PT. 12.3 SECONDS (11.7-14.9)
[2021-12-13 08:59] LABS: Partial Thromboplast Time 25.1 Seconds (24.1-36.2)
[2021-12-13 09:02] LABS: Fibrinogen 389 mg/dl (203-444)
[2021-12-13] MEDS: fentaNYL-bupivacaine (epidural) 100 ML BAG EPIDURAL (09:53)
[2021-12-13 09:55] LABS: Bedside Glucose 104 mg/dL (74-106)
[2021-12-13] MEDS: Lactated Ringers 1,000 ML 50 ML IV (10:50)
[2021-12-13] MEDS: Methylergonovine 0.2 MG/ML Ampul IM (11:13)
[2021-12-13] MEDS: Oxytocin 30 units/NS 500 ml 30 UNITS/500 ML IV.SOLN 334 UNITS IV (11:13)
--- NOTE | 2021-12-13 11:46 | PCM.HP.OB ---
HPI - General General Date of Admission: 12/13/21 Date of Service: 12/13/21 Chief Complaint: contractions HPI Narrative JOHANNA VELASQUEZ, is a 34 w/ ALIN of 12/30/21 presents c/o contractions worsening in intensity. No VB. Possible LOF but eval for SROM upon admission neg. Contractions continued. H/o one previous vaginal delivery, then primary c/s for nonreassuring FHTs. After observation found to be in active labor and desired TOLAC. Maternal Data Information Final ALIN: 12/30/21 Gestational age: 37 4/7 weeks [facility] Medical History (Updated 12/13/21 @ 11:[address] Natalie Tran MD) Gestational diabetes Home Medications vit,[id number] 1 tab PO DAILY 11/13/19 [History Last Taken 11/12/19] Allergy/AdvReac Type Severity Reaction Status Date / Time No Known Allergies Allergy Verified 12/13/21 06:52 Surgical History (Updated 12/13/21 @ 11:[address] Natalie Tran MD) Previous section Social History Smoking Status: Never smoker History Elective abortions Hx Para 2 Spontaneous abortions Hx # Term Pregnancies Ectopic pregnancies Hx # Pregnancies Multiple births # of living children ROS Constitutional Constitutional: Denies fatigue, fever(s) or malaise Eyes Eyes: Denies change in vision ENT HEENT: Denies dizziness or headache(s) Cardiovascular Cardiovascular: Denies chest pain, dyspnea or lightheadedness Respiratory/Chest Respiratory/Chest: Denies cough or dyspnea Gastrointestinal Gastrointestinal: Denies change in bowel habits Genitourinary Genitourinary: Denies burning urination or genital lesions Integumentary Integumentary: Denies rash Neurologic Neurologic: Denies confusion, dizziness, headache(s), numbness or weakness Vital Signs Vital Signs Vital Signs: 12/13/21 06:47 12/13/21 06:52 12/13/21 09:10 Temperature 97.4 F L 98.0 F Temperature Source Temporal Temporal Pulse Rate 57 L 73 Blood Pressure 107/62 134/60 H BP Systolic 107 134 BP Diastolic 62 60 Pulse Ox 12/13/21 09:13 12/13/21 09:17 12/13/21 09:18 Temperature Temperature Source Pulse Rate 54 L 66 63 Blood Pressure BP Systolic BP Diastolic Pulse Ox 100 93 100 12/13/21 09:23 12/13/21 09:28 12/13/21 09:30 Temperature Temperature Source Pulse Rate 58 L 68 69 Blood Pressure 104/52 L 95/64 93/54 L BP Systolic 104 95 93 BP Diastolic 52 64 54 Pulse Ox 99 12/13/21 09:35 12/13/21 09:38 12/13/21 09:40 Temperature Temperature Source Pulse Rate 82 75 78 Blood Pressure 120/58 L 108/57 L BP Systolic 120 108 BP Diastolic 58 57 Pulse Ox 100 100 12/13/21 09:43 12/13/21 09:45 12/13/21 09:48 Temperature Temperature Source Pulse Rate 72 69 63 Blood Pressure 100/57 L 100/55 L BP Systolic 100 100 BP Diastolic 57 55 Pulse Ox 100 12/13/21 09:50 12/13/21 09:54 12/13/21 09:55 Temperature Temperature Source Pulse Rate 71 66 57 L Blood Pressure 111/56 L BP Systolic 111 BP Diastolic 56 Pulse Ox 100 100 12/13/21 09:58 12/13/21 10:00 12/13/21 10:03 Temperature 98.5 F Temperature Source Temporal Pulse Rate 60 61 64 Blood Pressure 103/55 L 104/51 L BP Systolic 103 104 BP Diastolic 55 51 Pulse Ox 100 12/13/21 10:05 12/13/21 10:08 12/13/21 10:10 Temperature Temperature Source Pulse Rate 65 65 97 Blood Pressure 105/53 L BP Systolic 105 BP Diastolic 53 Pulse Ox 100 79 12/13/21 10:36 12/13/21 10:45 12/13/21 10:51 Temperature Temperature Source Pulse Rate 60 55 L 54 L Blood Pressure 88/52 L 99/57 L BP Systolic 88 99 BP Diastolic 52 57 Pulse Ox 87 12/13/21 10:52 12/13/21 10:57 12/13/21 11:42 Temperature Temperature Source Pulse Rate 67 73 57 L Blood Pressure 103/49 L BP Systolic 103 BP Diastolic 49 Pulse Ox 100 100 Weight Weight: 66.406 kg Physical Exam Const alert and no apparent distress General Appearance: cooperative HEENT normocephalic Resp normal respiratory effort Cardio regular rate GI soft to palpation GI Narrative: gravid, nontender, appropriate for gestational age Extremity no calf tenderness General Extremity: edema Skin no wounds Rashes: No rashes noted Psych activity/motor behavior normal Labs Labs Labs: Blood Type O NEGATIVE Antibody Screen NEGATIVE Hct 38.5 % (37-47) Hgb 13.0 g/dL (12.0-15.0) Rhogam given: Yes Assessment & Plan (1) 37 weeks gestation of : (2) High risk multigravida in third trimester: (3) Spontaneous onset of labor: (4) Previous section complicating , with delivery: PLAN: Response and alternatives to vaginal after section were discussed with the patient previously in the office her questions were answered to her satisfaction she desired to proceed. Patient had planned repeat if she did not enter spontaneous labor before 40 weeks. Declines section now. Estimated weight is less than 4500 g clinically and pelvis is clinically adequate to expect vaginal delivery. Patient desires epidural for pain control.
--- NOTE | 2021-12-13 11:50 | EX.PCM.OBRPT ---
Assessment & Plan (1) Previous section complicating , with delivery: (2) High risk multigravida in third trimester: (3) Spontaneous onset of labor: (4) Advanced maternal age during in third trimester: (5) 37 weeks gestation of : (6) , delivered: (7) Single live : Maternal Data Information Final ALIN: 12/30/21 Gestational age: 37 4/7 Vaginal Delivery Maternal Presentation Maternal Presentation: Active Labor Operative Information Date of Procedure: 12/13/21 Pre-Operative Diagnosis: labor, previous c/s Post-Operative Diagnosis: same Surgery / Procedure Performed: Type of Anesthesia: Epidural Special Medications: methergine IM x 1 Drain: - (none) Estimated Blood Loss: 600 Time of Delivery: 11:12 Findings Description of Procedure: A vigorous male infant was delivered TULIO over a second-degree perineal laceration. The remainder the was delivered with maternal pushing and gentle traction only in less than 15 seconds. The Pitocin infusion was initiated for active management of the third stage. The cord was clamped and cut after 1 minute. The was attended to by the waiting nursing staff. The placenta was delivered spontaneously and intact. The cervix and vagina were intact. The second-degree perineal laceration was repaired with 3-0 Vicryl suture in a running standard fashion. Sponge and needle counts were correct. A vaginal sweep was completed by me. Presentation: TULIO Amniotic Membrane Rupture Type: Spontaneous Amniotic Fluid Description: Clear Placental Delivery Description: Spontaneous Placenta Disposition: [facility] Cord Vessel Description: 3 Vessels Cord Entanglement: None Infant A Gender: Male (Vincent) (1 minute): 8 (5 minute): 9 Delayed Cord Clamping: Yes Post Vaginal Delivery Medications Given After Delivery: IV Pitocin Episiotomy Description: None Laceration: 2nd degree Complication Complications: None
[2021-12-13 13:05] LABS: Bedside Glucose 100 mg/dL (74-106)
[2021-12-13] MEDS: 0.9% Saline Lock 10 ML Syringe IV (13:49)
[2021-12-13] MEDS: Benzocaine/Lanolin/Aloe Vera 1 SPRAY EACH TOPICAL (15:13)
[2021-12-13] MEDS: Ibuprofen 600 MG Tablet PO (18:51)
[2021-12-14 00:50] VITALS: BP 95/54; PULSE 62; RESP 16; TEMP 36.8
[2021-12-14 04:15] VITALS: BP 93/55; PULSE 62; RESP 16; TEMP 36.9
[2021-12-14] MEDS: Acetaminophen 500 MG Tablet 1000 MG PO (04:21)
[2021-12-14 06:36] LABS: Bedside Glucose 73 mg/dL (74-106)
[2021-12-14 06:52] LABS: Hematocrit 33.3 % (37-47); Hemoglobin 11.2 g/dL (12.0-15.0); Mean Corp Hgb Conc 33.6 g/dL (32-36); Mean Corpuscular Hgb 30.7 pg (27.0-32.0); Mean Corpuscular Volume 91.2 fL (81-99); Mean Platelet Vol. 10.1 fl (6.2-12.0); Platelet Count 200 K/mm3 (150-450); RBC Distribution Width SD 42.7 fl (35.1-43.9); Red Blood Count 3.65 M/mm3 (4.2-5.4); White Blood Count 12.4 K/mm3 (4.4-11.0)
[2021-12-14] MEDS: Ibuprofen 600 MG Tablet PO ×2 (07:40→16:04)
[2021-12-14 07:46] VITALS: BP 93/47; PULSE 55; RESP 16; TEMP 36.7; O2SAT 99
--- NOTE | 2021-12-14 08:12 | PCM.PN.OB ---
Subjective Subjective Patient seen at bedside. infant without difficulty. Voiding and ambulating. Denies any headache, vision changes, SOB or CP. Desires discharge home today. Objective Data Objective Data Vital Signs: Vital Signs Temp Pulse Resp BP Pulse Ox 98.0 F 55 L 16 93/47 L 99 12/14/21 07:46 12/14/21 07:46 12/14/21 07:46 12/14/21 07:46 12/14/21 07:46 Oxygen Delivery Method Room Air Weight: 146 lb 6.4 oz Intake & Output: Intake and Output for Last 24 Hours 12/12/21 12/13/21 12/14/21 23:59 23:59 23:59 Intake Total 1878.34 / 1878.34 Balance 1878.34 / 1878.34 Lab / Micro Data Result Diagrams: 12/14/21 06:32 Labs: Laboratory Results - last 24 hr 12/13/21 07:35: PT 12.3, INR 0.9, APTT 25.1, Fibrinogen 389 12/13/21 07:35: Blood Type O NEGATIVE, Antibody Screen NEGATIVE 12/13/21 08:06: POC Glucose 104 12/13/21 09:48: POC Glucose 104 12/13/21 12:58: POC Glucose 100 12/13/21 16:20: Screen NEGATIVE, Baby's Blood Type O POSITIVE, Baby's POLI NEGATIVE 12/14/21 06:29: POC Glucose 73 L 12/14/21 06:32: WBC 12.4 H, RBC 3.65 L, Hgb 11.2 L, Hct 33.3 L, MCV 91.2, MCH 30.7, MCHC 33.6, RDW Std Deviation 42.7, RDW Coeff of Philipp 13.0, Plt Count 200, MPV 10.1 Micro: Microbiology 12/13/21 08:11 Nasal Secretion SARS-CoV-2 Antigen (Rapid) - Final ROS Eyes Eyes: Denies blurry vision, change in vision or spots in vision ENT HEENT: Denies dizziness or headache(s) Cardiovascular Cardiovascular: Denies abdominal pain, chest pain or dyspnea Respiratory/Chest Respiratory/Chest: Denies cough, dyspnea, shortness of breath at rest or shortness of breath with exertion Gastrointestinal Gastrointestinal: Denies abdominal pain, diarrhea or vomiting Genitourinary Genitourinary: Denies change in urinary stream, difficulty urinating or dysuria Musculoskeletal Musculoskeletal: Reports none Integumentary Integumentary: Denies rash Neurologic Neurologic: Denies dizziness, headache(s), memory loss or weakness Physical Exam Const alert and no apparent distress General Appearance: cooperative and comfortable Exam Limitations: no limitations HEENT normocephalic Eyes General Eye: normal appearance of both eyes Neck full ROM General: normal visual inspection Chest Chest: symmetrical chest wall rise Resp normal respiratory effort and normal air movement Effort and Inspection: symmetric chest movement Auscultation: clear to auscultation bilaterally Cardio regular rate and regular rhythm GI normal to inspection, nondistended, normoactive bowel sounds Back/Spine normal ROM Extremity full ROM and no calf tenderness General Extremity: normal exam except as noted Skin no rashes or lesions noted Neuro CN's II-XII intact bilaterally Psych mental status grossly normal Assessment & Plan (1) , delivered: (2) Advanced maternal age during in third trimester: PLAN: PPD 1 Routine care support D/C home with follow up in office
--- NOTE | 2021-12-14 08:22 | PCM.DC ---
Discharge Instructions Diet Discharge Diet: No restrictions Activity May resume sexual activity in: 6-8 weeks Weight Bearing Status: Weight bearing as tolerated Dressing / Incision Call your doctor if you observe: Fever of 101 or Higher, Inability to urinate, Using more than 1 pad per hour, Shortness of breath, Chest pain, Calf discomfort and Uncontrolled pain Follow Up Care When: 2 weeks virtual visit/ 6 weeks in office Test Results: Test results from this visit will be discussed in further detail at your follow-up appointment, if applicable. Discharge Plan Admission Admit Date/Time: 12/13/21 07:55 Primary Reason for Your Visit: Labor and delivery Attending Provider: Natalie Tran Primary Care Provider: Care Physician,No Primary Consulting Providers: Clary Cornell Discharge Orders/Prescriptions Prescriptions: Continued vit,[id number] 1 TABLET tablet 1 tab PO DAILY RF: 0 Referrals / Follow Up: Care Physician,No Primary [Primary Care Provider] - Disposition Disposition (needs filled in before D/C Order can be placed): Home, Self Care
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
--- NOTE | 2021-12-14 15:03 | CASEMGMT ---
Social Work Labor and Delivery unit Help me grow referral submitted through the [facility] assisted care web-based referral system. No other services requested or indicated. -SAY Crowley, MAINTENANCE SUPERVISOR MECHANICAL. *This note was generated with [employer] dictation software. It may contain incorrect words, spelling, and punctuation that were not noted in review of the chart prior to signing*
[2021-12-14 15:45] VITALS: BP 85/44; PULSE 60; RESP 16; TEMP 36.7; O2SAT 99
[2021-12-14] MEDS: Senna/Docusate Sodium 1 Tablet PO (16:04)
== END 2021-12-14 16:50 | disposition home or self-care (01) | DRG 807 ==
LOC: WPOUT 08:04 → WP 08:04
PROVIDERS: Admitting Provider Obstetrics & Gynecology; Referring Provider Obstetrics & Gynecology; Visit Provider Obstetrics & Gynecology
DX: O34.219 Maternal care for unspecified type scar from previous cesarean delivery (principal); Z37.0 Single live birth; O70.1 Second degree perineal laceration during delivery; Z3A.37 37 weeks gestation of pregnancy; O75.89 Other specified complications of labor and delivery; Z86.32 Personal history of gestational diabetes
CPT/HCPCS: 59025; 59050; 82962; 84112; 85025; 85027; 85384; 85461; 85610; 85730; 86850; 86900; 86901; 87426; 90384; 99218; J7120; A4216; G0378; J2790

== ENCOUNTER 2021-12-18 11:35 | Emergency (ER) | payer OTHER, SELFPAY ==
[2021-12-18 11:36] VITALS: BP 108/81; PULSE 87; RESP 18; TEMP 37.2; O2SAT 100; BMI 24.0
[2021-12-18 11:39] VITALS: BP 108/81; PULSE 87; RESP 18; TEMP 37.2; O2SAT 100
--- NOTE | 2021-12-18 11:51 | ED.VIS.FEGU ---
HPI HPI - Female History of Present Illness Chief Complaint: Female C/O Informant: patient and spouse/S.O. Pain Pain: Positive for Vaginal Pain Onset: Days (3 days) Context: Gradual Onset Narrative Narrative: Patient presents secondary to vaginal pain. She had a vaginal delivery on December 13. She went home from the hospital on the first. The following day she started developing vaginal pain. She has a small amount of vaginal bleeding. [facility] for this increased pain and were sent to the emergency room. On review of delivery notes it does appear the patient had a second-degree perineal laceration was repaired with 3-0 Vicryl running suture. PFSH PFS Medical History Gestational diabetes Home Medications vit,[id number] 1 tab PO DAILY 11/13/19 [History Last Taken 11/12/19] hydrocodone-acetaminophen 1 tab PO Q6H PRN 3 Days #10 tab 12/18/21 [Rx Last Taken Unknown] Allergy/AdvReac Type Severity Reaction Status Date / Time No Known Allergies Allergy Verified 12/18/21 11:39 Surgical History Previous section Social History Smoking Status: Never smoker ROS ROS ED Constitutional Constitutional ED: Denies chills or fever(s) Eyes Eyes: Denies change in vision ENT ENT ED: Denies sore throat Cardiovascular Cardiovascular: Denies chest pain Respiratory/Chest Respiratory/Chest: Denies cough or dyspnea Gastrointestinal Gastrointestinal: Denies abdominal pain, diarrhea, nausea or vomiting Genitourinary Genitourinary ED: Reports other Details: Vaginal pain ; Denies dysuria Musculoskeletal Musculoskeletal: Denies back pain Integumentary Denies rash Neurologic Neurologic: Denies headache(s) or weakness Allergic/Immunologic Allergic/Immunologic ED: Denies urticaria EXAM Physical Exam Const Vital Signs: 12/18/21 11:36 12/18/21 11:39 Temperature 98.9 F 98.9 F Temperature Source Temporal Temporal Pulse Rate 87 87 Respiratory Rate 18 18 Blood Pressure 108/81 H 108/81 H Blood Pressure Mean 90 90 Pulse Ox 100 100 Oxygen Delivery Method Room Air Room Air Positive well nourished and well developed General Appearance ED: well developed HEENT Reports moist mucous membranes Eyes EOMs intact bilaterally Neck supple Chest Wall inspection of chest normal and palpation of chest normal Resp normal respiratory effort and clear to auscultation bilaterally Cardio regular rate and regular rhythm GI normal to inspection, nondistended, normoactive bowel sounds, soft to palpation and non-tender Narrative: Patient has significant tenderness at the vaginal orifice. There is redundant skin fold. I do not see large gaping wound from a wound dehiscence. There is mild bleeding. With her recent vaginal delivery and laceration repair I did not introduce a speculum to attempt a full exam. Psych mental status grossly normal Skin no rashes or lesions noted MDM MDM Treatment and Re-Evaluation Narrative: After my bedside exam I spoke with Clary Cornell, on-call for [facility] WINDING MACHINE OPERATOR. She states that this time her goal would be pain control and they will see the patient in the office this week. I do not believe ultrasound or lab work will be beneficial as she has focal vaginal pain and no abdominal pain. There has been no fever. Patient will be given a dose of Baker here with a prescription for the same. They are to call the office tomorrow morning for first available appointment. Discharge Plan Triage Chief Complaint: Female C/O ED Provider: Valerie Truong Dx/Rx/DC Orders Clinical Impression: Post-op pain, Vaginal pain Instructions: ED Pelvic Pain, Unknown Cause, ED Post Op Wound Check, Pain Prescriptions: New hydrocodone-acetaminophen 5-325 mg tablet 1 tab PO Q6H PRN (Reason: pain) 3 Days Qty: 10 RF: 0 No Action vit,[id number] 1 TABLET tablet 1 tab PO DAILY RF: 0 Primary Care Provider: Care Physician,No Primary Referrals: Natalie Tran MD [STAFF PHYSICIAN] - As soon as possible Care Physician,No Primary [Primary Care Provider] - Disposition Disposition: Home, Self Care
[2021-12-18] MEDS: HYDROcodone Bitartrate/Apap 5/325 Tablet PO (12:58)
== END 2021-12-18 13:03 | disposition home or self-care (01) ==
PROVIDERS: Emergency Provider Emergency Medicine; Visit Provider Emergency Medicine
DX: O90.89 Other complications of the puerperium, not elsewhere classified (principal); G89.18 Other acute postprocedural pain; R10.2 Pelvic and perineal pain; N93.9 Abnormal uterine and vaginal bleeding, unspecified
CPT/HCPCS: 99283